=== PATIENT | female | born 1980 | race Caucasian/White ===

== ENCOUNTER 2017-01-31 07:48 | Emergency (ER) | payer BC, OTHER ==
--- NOTE | 2017-01-31 08:02 | UCPHY ---
H & P Time Seen by Provider: 01/31/17 08:01 Patient Type: New HPI/ROS: Chief complaint. Ear pain HPI. 36-year-old female visiting from [place] has had upper respiratory symptoms for the past 10-14 days. They seem to be improving. However this morning she awoke with right ear pain. She had tubes as a child and has had frequent ear infections and says this feels like an ear infection. She does have slight sore throat this is improving. No cough. No fever. ROS Constitutional. no fever/chills, no weakness Eyes. no problems with vision ENT. Right ear pain Cardiovascular. no chest pain Respiratory. no shortness of breath, no cough Abdominal. no abdominal pain, no nausea/vomiting, no diarrhea . no problems urinating MS. no calf pain/swelling, no neck/back pain, no joint pain Skin. no rash Lymph. no swollen glands Neuro. no headache, no dizziness, no difficulty walking or with speech Past Medical/Surgical History: Healthy Social History: Single, nonsmoker, no alcohol Physical Exam: General Appearance: Alert well-developed female mild distress vital signs are stable Eyes: Pupils equal and round no pallor or injection. ENT, right tympanic membrane stiff in erythematous. Left tympanic membranes normal. Pharynx mildly injected without exudate Respiratory: There are no retractions, lungs are clear to auscultation. Cardiovascular: Regular rate and rhythm. Gastrointestinal: Abdomen is soft and nontender, no masses, bowel sounds normal. Neurological: Awake and alert, sensory and motor exams grossly normal. Skin: Warm and dry, no rashes. Musculoskeletal: Neck is supple nontender. Extremities symmetrical, full range of motion. Psychiatric: Patient is oriented X 3, there is no agitation. Constitutional: Initial Vital Signs Temperature (C) 36.6 C 01/31/17 08:01 Heart Rate 74 01/31/17 08:01 Respiratory Rate 18 01/31/17 08:01 Blood Pressure 127/82 H 01/31/17 08:01 O2 Sat (%) 96 01/31/17 08:01 O2 Delivery Mode Room Air Allergies/Adverse Reactions: No Known Allergies Allergy (Unverified 01/31/17 08:01) Home Medications: Medication Instructions Recorded Amoxicillin 500 mg PO TID 7 Days 01/31/17 Hydrocodone/APAP 5/325 [[place] 1 each PO Q4-6PRN PRN #10 tab 01/31/17 5/325 (*)] MDM/Departure - MDM ED Course/Re-evaluation: Patient remains stable. Patient and I discussed treatment plan including criteria for return and importance of follow-up and further evaluation. She expresses understanding and agreement Differential Diagnosis: 2 weeks of what sounds like likely viral upper respiratory infection. Now with right otitis media. I considered bacterial, bulous, serous, viral etiologies - Depart Disposition: Home, Routine, Self-Care Clinical Impression: Right otitis media Qualifiers: Otitis media type: unspecified Condition: Good Instructions: Otitis Media (ED) Additional Instructions: Amoxicillin as antibiotic. Ibuprofen 600 mg every 6 hours for pain. Hydrocodone if needed in addition for pain. May use decongestants such as Sudafed and Actifed in addition. Return for worsening symptoms. Recheck in 2- 3 days if not improved Prescriptions: Amoxicillin 500 mg PO TID 7 Days Hydrocodone/APAP 5/325 [[place] 5/325 (*)] 1 each PO Q4-6PRN PRN #10 tab PRN Reason: Pain, Moderate Referrals: Melissa Guo MD [Medical Doctor] - 2-3 days, if not improved - PQRS PQRS Measurement: 134: Depression screening and followup, PRIME MD-PHQ2 (12 years and older) Over the last 2 weeks, how often have you been bothered by any of the following problems? 1. Feeling down, depressed, or hopeless? 2. Little interest or pleasure in doing things? Patient answered no to both 1 and 2 130: Documentation of medications. None 226: Do you smoke? No.
[2017-01-31 08:04] VITALS: BP 127/82; PULSE 74; RESP 18; TEMP 98; O2SAT 96
== END 2017-01-31 08:31 | disposition home or self-care (01) ==
LOC: CED 07:48
DX: H66.91 Otitis media, unspecified, right ear (principal)
CPT/HCPCS: 99203-PO; G0463-PO